=== PATIENT | female | born 1980 | race Caucasian/White ===

== ENCOUNTER 2017-07-17 15:04 | Observation (INO) | payer MEDICAID ==
[~2017-07-17] VITALS: Ht 170.2 cm; Wt 54.4 kg
[~2017-07-17 15:04] MED LIST: PREN-129 OR
[2017-07-17] MEDS ORDERED: SODIUM CHLORIDE 0.9% 1,000 ML IVB ONE (15:48)
[2017-07-17] MEDS ORDERED: ONDANSETRON HCL 4 MG/2 ML VIAL IV ONE ×2 (16:00→20:30)
[2017-07-17] MEDS ORDERED: MORPHINE SULF INJ 2 MG/ML SYRINGE 1ML IV ONE ×2 (16:00→20:30)
[2017-07-17 16:43] LABS: Basophils # (auto) 0 uL; Basophils % (auto) 0.4 % (0.0-2.0); CONDITION Y; Eosinophils # (auto) 0.1 uL; Eosinophils % (auto) 1.1 % (0.0-7.0); Hematocrit 29.1 % (36.0-46.0); Lymphocytes # (auto) 2.2 uL; Mean Corpuscular Hemoglobin 32.5 pg (28.0-32.0); Mean Corpuscular Hgb Conc. 34.4 g/dL (32.0-36.0); Mean Corpuscular Volume 94.5 fL (80.0-100.0); Mean Platelet Volume 8.7 fL (7.4-10.4); Monocytes # (auto) 0.8 uL; Monocytes % (auto) 6.7 % (0.0-12.0); Neutrophils # (auto) 8.4 uL; Neutrophils % (auto) 72.8 % (37.0-80.0); Platelet Count (auto) 317 10^3/uL (140-450); Red Cell Distribution Width 13.1 % (11.6-16.0); White Blood Cell 11.6 10^3/uL (4.4-10.8)
[2017-07-17 17:03] LABS: Albumin 2.9 g/dL (3.4-5.0); BUN/Creatinine Ratio 6.3; Calcium 8.6 mg/dL (8.5-10.1)
[2017-07-17 17:06] LABS: Bilirubin, Total 0.3 mg/dL (0.2-1.0); Total Protein 6.2 g/dL (6.4-8.2)
[2017-07-17 17:12] LABS: Potassium 2.8 mmol/L (3.5-5.1)
[2017-07-17] MEDS ORDERED: POTASSIUM CHL 20MEQ/100ML 100 ML IV ONE (17:30)
[2017-07-17] MEDS ORDERED: POTASSIUM CHL 10% (20 MEQ/15ML) 15ml ORAL SOLN PO ONE (18:45)
[2017-07-17] MEDS ORDERED: SODIUM CHLORIDE 0.9% 1,000 ML IV ONE (18:58)
[2017-07-17 19:29] LABS: INR 0.95 (0.9-1.15); Partial Thromboplastin Time 24.1 sec (22.64-33.71); Prothrombin Time 10.4 sec (9.37-12.3)
[2017-07-17] MEDS: OXYTOCIN 10UNIT/ML 1ML VIAL IM ONE ×2 (20:00→20:44)
[2017-07-17] MEDS: FERROUS SULFATE 300 MG/5 ML ORAL LIQ GT ONE ×2 (20:00→20:44)
[2017-07-17] MEDS ORDERED: FERROUS SULFATE 300 MG/5 ML ORAL LIQ PO ONE (21:00)
[2017-07-17] MEDS ORDERED: OXYTOCIN 10UNIT/ML 1ML VIAL IV ONE (21:00)
[2017-07-17 23:11] VITALS: BP 108/60
== END 2017-07-18 01:15 | disposition home or self-care (01) | DRG 532 ==
LOC: EDBD 15:04 → ER 15:16 → OVERFLOW 19:57 → ER 23:47
PROVIDERS: ADMIT Emergency Medicine; ATTEND Emergency Medicine
DX: N93.9 Abnormal uterine and vaginal bleeding, unspecified (principal); E87.6 Hypokalemia; F17.210 Nicotine dependence, cigarettes, uncomplicated; R10.30 Lower abdominal pain, unspecified; Z90.49 Acquired absence of other specified parts of digestive tract
CPT/HCPCS: 36415; 76801; 76817; 80053; 84702; 85025; 85610; 85730; 86850; 86900; 86901; 96361; 96365; 96366; 96375; 96376; 99285; G0378; J2270; J2405; J3480; J7030